=== PATIENT | male | born 1960 | race Caucasian/White ===

== ENCOUNTER → 2018-07-11 | Outpatient (CLI) | payer OTHER | LOC: CAT 09:54 | DX: Z13.6 Encounter for screening for cardiovascular disorders (principal); I25.10 Atherosclerotic heart disease of native coronary artery without angina pectoris; E78.00 Pure hypercholesterolemia, unspecified ==

== ENCOUNTER 2019-12-03 06:56 | Observation (INO) | payer OTHER ==
[~2019-12-03] VITALS: Ht 188 cm; Wt 97.2 kg
[2019-12-03] VITALS (20 sets, daily range): BP systolic 112–154; BP diastolic 73–89
[2019-12-03 07:49] LABS: HEMOGLOBIN 14.4 gm/dL (14.0-18.0); MCH 28.3 pg (26.0-34.0); MCHC 32.9 g/dL (28.0-37.0); MCV 86.1 fL (80.0-100.0); RBC 5.1 mil/uL (4.50-6.00); RDW 13.8 % (10.5-14.5); WBC 5.5 thou/uL (4.0-11.0)
[2019-12-03] MEDS ORDERED: XANAX1 MG PO (07:53)
[2019-12-03] MEDS ORDERED: QUESTRAN PACKET4 GM PO (07:54)
[2019-12-03] MEDS ORDERED: LISINOPRIL-HCT1 EAC1 PO (07:55)
[2019-12-03] MEDS ORDERED: LEVO-T100 MCG PO (07:55)
[2019-12-03] MEDS ORDERED: SEROQUEL 50 MG50 M1 PO (07:56)
[2019-12-03] MEDS ORDERED: ASA81BEC PO (07:57)
[2019-12-03] MEDS ORDERED: BRINTELLIX20 MG PO (07:57)
[2019-12-03 07:58] LABS: CALCIUM 8.2 mg/dL (8.5-10.1); CREATININE 0.9 mg/dL (0.7-1.3); POTASSIUM 3.5 mmol/L (3.5-5.1)
[2019-12-03] MEDS ORDERED: LIPITOR 20 MG T20 M1 PO ×2 (07:58)
--- NOTE | 2019-12-03 11:18 | NUR ---
PT ARRIVED TO UNIT AT APPROX 1000 BY PRESCHOOL EDUCATION DIRECTOR STAFF AND SPOUSE. PT ALERT AND ORIENTED.VSS. C/O GROIN PAIN-MANAGED WITH PO PAIN MEDS. R GROIN SITE CDI NO HEMATOMA. PT CURRENTLY ON BEDREST PER ORDERS. O2 SATS WNL ON RA. ADMISSION COMPLETE. TELE STRIP PRINTED AND DOCUMENTED. WILL CONT TO MONITOR PT AND FOLLOW POC.
--- NOTE | 2019-12-03 12:48 | EKG ---
[facility] [place] [address] ELECTROCARDIOGRAM REPORT Name: JOSE DANIEL VAZQUEZ Room #: 211-[facility] M.R.#: [id number] Admission: 12/03/19 Attend Phys: Sukh Mclean MD Discharge: Date of : 58 Report #: [id number] THIS REPORT FOR: cc: SALOMÓN ABREU CHRISTOPHER F DO Lammoglia, Francisco J. MD ~ THIS REPORT FOR: //name// [facility] Test Date: 2019-12-03 Test Time: 10:46:16 Pat Name: JOSE DANIEL VAZQUEZ Department: Room: 211 P Gender: M Compounder: BJ : 1960 Requested By: Sukh Mclean Order Number: [id number] MD: Sorin Sands Measurements Intervals [place] Rate: 53 P: 35 UT: 198 QRS: 71 QRSD: 147 T: 25 QT: 444 QTc: 417 Interpretive Statements Sinus rhythm Right bundle branch block No previous ECG available for comparison Electronically Signed On 12-03-2019 12:47:47 CDT by Sorin Sands [email or web address] <ELECTRONICALLY SIGNED> By: Sorin Sands MD 12/03/19 1247 1046 1046 Sorin Sands MD /EPI
--- NOTE | 2019-12-03 13:02 | CATHLAB ---
[facility] [place] [address] INVASIVE PROCEDURE REPORT Name: JOSE DANIEL VAZQUEZ Room #: 211-P [facility] M.RLev#: [id number] Admission: 12/03/19 Attend Phys: Sukh Mclean MD Discharge: Date of : 58 Report #: [id number] THIS REPORT FOR: cc: SALOMÓN ABREU CHRISTOPHER F DO Park, Jin S. MD ~ APPROVED REPORT Study performed: 12/03/2019 07:54:43 Patient Details Patient Status: Out-Patient Room #: The patient is a 59 year-old male Event Personnel Sukh Mclean Fire Regulator, Giulia Giles RTR Monitor, Claudia Gillespie RTR ScrJi de la cruz Dexter RN fiscal technician Performed Art Access - R femoral artery* Left Heart Cath w/or w/o Coronaries [id number] [facility] w/wo Plasty Single CIRC 871928 Hemostasis with Manual pressure 59726 Initial Mod Sed Same Phys/QHP Gr5y 842639 27617 Mod Sed Same Phys/QHP Ea 830678 Indication Dyspnea, Unstable angina , Chest pain Risk Factors Hypercholesterolemia, Coronary Artery DiseaseHypertension, Tobacco History () Procedure Narrative The Right Groin^ was infiltrated with 1% Lidocaine subcutaneous anesthesia. A PINNACLE 4FR Sheath #[id number] sheath was inserted into the RFA^. Coronary angiography was performed using coronary diagnostic catheters. The right coronary system was accessed and visualized with a JR4 catheter. The left coronary system was accessed and visualized with a JL5 catheter. The left ventricle was accessed and visualized with a JR4 catheter. Pre-demployment femoral angiogram was performed . Hemostasis was obtained with manual pressure following sheath removal without any complications. The patient tolerated the procedure well and there were no complications associated with the procedure. There was no hematoma. [facility] [address] [place] [address] INVASIVE PROCEDURE REPORT Name: JOSE DANIEL VAZQUEZ Room #: 211-P [facility] [place] .R.#: [id number] Admission: 12/03/19 Attend Phys: Sukh Mclean MD Discharge: Date of : 58 Report #: [id number] Intraoperative Conscious Sedation Sedation start time: 8:28 Case end Time: 9:35 Fentanyl 100 mcg Versed 3 mg Fluoro Time: 11.20 minutes Dose: DAP 57074.00 cGycm2 3167 mGy Contrast Type and Amount: Omnipaque 155 ml Coronary Angiography The patient's coronary anatomy is right dominant. Diagnostic Cath Left Main There is a large-caliber vessel, with mild plaquing distally. LAD The LAD is a moderate-sized caliber vessel, traverses the anterior wall and terminates at the apex. There is a mild to moderate stenosis in the midsegment, 30 to 40%. Diagonal 1 This is a moderate-sized caliber vessel, with no flow-limiting lesions. Circumflex The left circumflex artery has a severe occlusion in the proximal segment, 80%. OM1 This is a moderate-sized caliber vessel, with no flow-limiting lesions. Right Coronary The RCA is a dominant vessel with mild plaquing in the midsegment. R PDA This is a moderate-sized caliber vessel, with no flow-limiting lesions. RPLV This is a moderate-sized caliber vessel, with no flow-limiting lesions. Left Ventriculography Left Ventriculography was not performed. An LVEDP was measured and there is no gradient across the outflow tract. Hemodynamics The aortic pressure is 133/76 mmHg with a mean of 103 mmHg. The left ventricular pressure is 125/12 mmHg with a mean of mmHg. The left ventricular end diastolic pressure is 18 mmHg. PCI Technique Lesion Percutaneous coronary intervention was performed on the proximal circumflex artery segment. The lesion stenosis prior to intervention was 80% with DEVANG 3 flow. A VISTA 6FR XB 3.5 #[id number] Guide Catheter was used to engage the ostium. A Luge Wire .014 x 182CM #[id number] Interventional Guidewire was used to cross the lesion. [facility] [address] [place] [address] INVASIVE PROCEDURE REPORT Name: JOSE DANIEL VAZQUEZ Room #: 211-P [facility] M.R.#: [id number] Admission: 12/03/19 Attend Phys: Sukh Mclean MD Discharge: Date of : 58 Report #: [id number] BALLOON DILATION A Balloon catheter Euphora RX 2.25 x 10 #[id number] was inserted and inflated up to 10.00atm for 13seconds. Additional Inflation: 12.00atm for 15seconds. STENT DEPLOYMENT A stent RESOLUTE SP RX 2.75 X15 #[id number] was inserted and inflated up to 12.00atm for 19seconds. POST STENT DEPLOYMENT BALLOON DILATION A Balloon catheter Euphora NC RX 2.75 x 12 #[id number] was inserted and inflated up to 16.00atm for 18seconds. Additional Inflation: 18.00atm for 30seconds. A second NC Euphora balloon measuring 2.75mm x 12mm was inflated. 16 KENRICK for 16 seconds. 18 KENRICK for 22 seconds. Final angiography reveals 0 % stenosis with DEVANG 3 flow. Conclusion 1. Successful insertion of a drug-eluting stent into the proximal left circumflex artery segment. 2. There is mild to moderate disease in the mid LAD. 3. Recommend dual antiplatelet therapy and aggressive risk factor management. <ELECTRONICALLY SIGNED> By: Sukh Mclean MD 12/03/19 1301 1301 1301 Sukh Mclean MD /INF
--- NOTE | 2019-12-03 16:41 | NUR ---
PT CONTINUES TO BE ALERT AND ORIENTED.VSS. POST CATH VITALS CHARTED. C/O PAIN IN GROIN- MANAGED WITH PO PAIN MEDS. PT UP TOLERATING WELL. PT PROGRESSING TOWARD GOALS. PLAN IS FOR DC IN AM. WILL CONT TO MONITOR AND FOLLOW POC.
--- NOTE | 2019-12-04 03:20 | NUR ---
SLEEPING WITHOUT PRESENT COMPLAINTS. WORKING ON GOALS AND PLAN OF CARE FOR NOC. UP AD BRIAN IN ROOM. SEE POST CATH INTERVENTION FOR ASSESMENT. RIGHT GROIN DSG C/D/I WITH SITE FREE OF BLEEDING OR HEMATOMA. PROGRESSING TOWARDS DISCHARGE GOALS. CONTINUE TO ASSES.
[2019-12-04 03:50] VITALS: BP 100/60
[2019-12-04 04:09] LABS: HEMATOCRIT 42.4 % (42.0-52.0); MCH 28.5 pg (26.0-34.0); MCHC 33.2 g/dL (28.0-37.0); MCV 85.9 fL (80.0-100.0); RBC 4.93 mil/uL (4.50-6.00); RDW 13.6 % (10.5-14.5); WBC 6.3 thou/uL (4.0-11.0)
[2019-12-04 06:06] LABS: ALBUMIN 3.3 g/dL (3.4-5.0); CALCIUM 8.1 mg/dL (8.5-10.1); CREATININE 0.9 mg/dL (0.7-1.3); POTASSIUM 3.3 mmol/L (3.5-5.1); TOTAL BILIRUBIN 0.6 mg/dL (0.2-1.0); TOTAL PROTEIN 6.2 g/dL (6.4-8.2)
[2019-12-04] MEDS ORDERED: EFFIENT10 MG PO (07:23)
[2019-12-04 07:30] VITALS: BP 133/80
--- NOTE | 2019-12-04 07:45 | EKG ---
[facility] [place] [address] ELECTROCARDIOGRAM REPORT Name: JOSE DANIEL VAZQUEZ Room #: 211-[facility] M.R.#: [id number] Admission: 12/03/19 Attend Phys: Sukh Mclean MD Discharge: Date of : 58 Report #: [id number] THIS REPORT FOR: cc: SALOMÓN ABREU CHRISTOPHER F DO Santiago, Patrick MD [facility] ~ THIS REPORT FOR: //name// [facility] Test Date: 2019-12-04 Test Time: 07:06:01 Pat Name: JOSE DANIEL VAZQUEZ Department: Room: 211 P Gender: M Devil Tender: BJ : 1960 Requested By: Sukh Mclean Order Number: [id number] MD: Leonel Yip Measurements Intervals [place] Rate: 56 P: 16 NH: 202 QRS: 44 QRSD: 149 T: 3 QT: 442 QTc: 427 Interpretive Statements Sinus rhythm Borderline prolonged NH interval Right bundle branch block Compared to ECG 12/03/2019 10:46:16 No significant changes Electronically Signed On 12-04-2019 7:45:22 CDT by Leonel Yip [email or web address] <ELECTRONICALLY SIGNED> By: Leonel Yip MD, FAC 12/04/19 0745 5 5 Leonel Yip MD, [facility] /EPI
[2019-12-04 10:47] VITALS: BP 133/80
== END 2019-12-04 11:45 | disposition home or self-care (01) ==
LOC: CATH 06:56 → 2N 10:20 → CATH 12:36 → 2N 12-04 11:45
PROVIDERS: ADMIT Internal Medicine Cardiovascular Disease; ATTEND Internal Medicine Cardiovascular Disease
DX: I25.119 Atherosclerotic heart disease of native coronary artery with unspecified angina pectoris (principal); I10 Essential (primary) hypertension; E78.5 Hyperlipidemia, unspecified; G89.29 Other chronic pain; K21.9 Gastro-esophageal reflux disease without esophagitis; E03.9 Hypothyroidism, unspecified; E78.00 Pure hypercholesterolemia, unspecified; F17.220 Nicotine dependence, chewing tobacco, uncomplicated; Z79.899 Other long term (current) drug therapy

== ENCOUNTER → 2021-01-30 | Outpatient (CLI) | payer OTHER ==
[~2021-01-30] MED LIST: ASA81BEC PO; BRINTELLIX20 MG PO; EFFIENT10 MG PO; LEVO-T100 MCG PO; LIPITOR 20 MG T20 M1 PO; LISINOPRIL-HCT1 EAC1 PO; QUESTRAN PACKET4 GM PO; SEROQUEL 50 MG50 M1 PO; XANAX1 MG PO
== END ==
LOC: SJCVCIMAG 12-20 08:17
PROVIDERS: ATTEND Internal Medicine Cardiovascular Disease
DX: I25.10 Atherosclerotic heart disease of native coronary artery without angina pectoris (principal); I10 Essential (primary) hypertension; Z95.2 Presence of prosthetic heart valve; F17.200 Nicotine dependence, unspecified, uncomplicated

== ENCOUNTER → 2021-02-08 | Outpatient (CLI) | payer OTHER | LOC: SJCVCIMAG 10:49 | PROVIDERS: ATTEND Internal Medicine Cardiovascular Disease | DX: I45.10 Unspecified right bundle-branch block (principal); R00.0 Tachycardia, unspecified; I25.10 Atherosclerotic heart disease of native coronary artery without angina pectoris; R94.31 Abnormal electrocardiogram [ECG] [EKG]; E78.5 Hyperlipidemia, unspecified; I10 Essential (primary) hypertension; Z79.82 Long term (current) use of aspirin; Z79.899 Other long term (current) drug therapy; Z72.0 Tobacco use ==

== ENCOUNTER → 2021-03-07 | Outpatient (CLI) | payer OTHER | LOC: SJCVCIMAG 11:46 | PROVIDERS: ATTEND Internal Medicine Cardiovascular Disease | DX: R07.9 Chest pain, unspecified (principal); I25.10 Atherosclerotic heart disease of native coronary artery without angina pectoris; Z95.5 Presence of coronary angioplasty implant and graft ==

== ENCOUNTER → 2021-03-23 | Outpatient (CLI) | payer OTHER | LOC: SJCVCIMAG 11:03 | PROVIDERS: ATTEND Internal Medicine Cardiovascular Disease | DX: M79.605 Pain in left leg (principal); M79.604 Pain in right leg; M79.89 Other specified soft tissue disorders; I25.10 Atherosclerotic heart disease of native coronary artery without angina pectoris; K21.9 Gastro-esophageal reflux disease without esophagitis; E78.5 Hyperlipidemia, unspecified; I10 Essential (primary) hypertension; Z95.818 Presence of other cardiac implants and grafts; Z82.49 Family history of ischemic heart disease and other diseases of the circulatory system; Z79.82 Long term (current) use of aspirin; Z79.899 Other long term (current) drug therapy; Z91.048 Other nonmedicinal substance allergy status ==